=== PATIENT | female | born 1985 ===

== ENCOUNTER 2023-05-29 08:26 | Emergency (ER) | payer OTHER, SELFPAY ==
--- NOTE | ~2023-05-29 | XR_ITS ---
EXAMINATION: XR FINGER, RIGHT CLINICAL INFORMATION: Dog bite right index finger COMPARISON: None available. TECHNIQUE: 3 views of the right index finger. FINDINGS: There is comminuted fracture proximal phalanx proximal end with extension to DIP joint. There is very minimal to no displacement. There is mild soft tissue swelling. XR/XR finger RT min 2V IMPRESSION: Comminuted fracture proximal end proximal phalanx DIP joint. Mild soft tissue swelling.
[2023-05-29 08:41] VITALS: BP 147/79; PULSE 92; RESP 16; TEMP 36.6; O2SAT 100; BMI 24.8
--- NOTE | 2023-05-29 09:26 | ED_ITS ---
HPI - Wound/Laceration General Chief Complaint: Wound/Laceration Stated Complaint: finger lac Time Seen by Provider: 05/29/23 09:05 Source: patient and family Mode of arrival: ambulatory Limitations: no limitations History of Present Illness HPI narrative: 38 yo female previously healthy left hand dominant here with complaints of laceration to the right index finger. Patient reports her dog was having a seizure and when he woke up he was quite agitated and confused causing a laceration to the finger. His rabies vaccines are up to date. Her tetanus is UTD. She denies weakness of the finger but reports some distal numbness/tingling Related Data Previous Rx's Medication Instructions Recorded amoxicillin 875 mg-potassium 1 tab PO BID #14 tabs 05/29/23 clavulanate 125 mg tablet Allergies Allergy/AdvReac Type Severity Reaction Status Date / Time No Known Allergies Allergy Verified 05/29/23 08:40 Review of Systems 2 Review of Systems: Yes all other systems are reviewed and are negative Constitutional: Constitutional: Reports no additional constitutional complaints, Denies body ache(s), Denies chills, Denies fever(s), Denies headache(s) and Denies weakness Eyes: Eyes: Reports no additional eye complaints and Denies change in vision ENT: Reports system reviewed and no additional complaints, except as documented, Denies dizziness, Denies headache(s), Denies nasal congestion, Denies nasal discharge and Denies neck pain Cardiovascular: Cardiovascular: Reports no additional cardiovascular complaints, Denies chest pain, Denies leg edema and Denies dyspnea Respiratory: Respiratory: Reports no additional respiratory complaints, Denies cough and Denies dyspnea Gastrointestinal: Gastrointestinal: Reports no additional gastrointestinal complaints, Denies abdominal pain, Denies diarrhea, Denies nausea and Denies vomiting Genitourinary: Genitourinary: Reports no additional female genitourinary complaints and Denies urinary incontinence Musculoskeletal: Musculoskeletal: Reports no additional musculoskeletal complaints, Denies back pain, Denies arthralgias, Denies joint swelling, Denies neck pain, Reports numbness and Reports tingling Integumentary/Breasts: Skin/Breast: Reports system reviewed and no additional complaints, except as docu, Denies rash and Reports wounds Neurologic: Reports system reviewed and no additional complaints, except as documented, Denies Abnormal speech present, Denies dizziness, Denies headache(s), Reports numbness, Reports tingling and Denies weakness [facility] [place] Past Medical History Attestation statement: The following information was validated with the patient. Source: old records reviewed and nursing notes reviewed Social History Social History Advance Directives: No Physical Exam 2 Vital Signs: Vital Signs: Last Vital Signs Temp 98 F 05/29/23 08:41 Pulse 92 05/29/23 08:41 Resp 16 05/29/23 08:41 BP 147/79 H 05/29/23 08:41 Pulse Ox 100 05/29/23 08:41 O2 Del Method Room Air 05/29/23 08:41 BMI result Body Mass Index 24.8 Const: General: cooperative, healthy appearing, comfortable and no acute distress Orientation/consciousness: patient oriented x3 Limitations: no limitations HEENT: Head: Yes normal to inspection Ears: hearing grossly normal bilaterally General nose exam: Normal external nose present Face and sinus: Yes normal facial exam Mouth: Normal oral and palatal mucosa present Throat: Yes posterior oropharynx normal Eyes: General: appearance normal, both eyes and all related structures P upils: Equal, round and reactive pupils present Neck: Neck: Yes normal visual inspection Chest: Chest palpation & inspection: normal inspection of the chest Resp: Effort & Inspection: normal respiratory effort Auscultation: clear to auscultation bilaterally Cardio: Rate: regular rate Rhythm: regular rhythm Peripheral pulses: P eripheral pulses 2+ throughout GI: Inspection: Yes normal to inspection Palpation (GI): Soft to palpation and nontender Auscultation: normal bowel sounds Back/Spine/Pelvis: Thoracic/Lumbar Spine: thoracic and lumbar spine normal to inspection Skin: General skin exam: no rashes or lesions noted Neuro: General: patient oriented x3, no focal motor deficits and normal sensation to monofilament Cranial nerves: Yes Equal, round and reactive pupils present Cognition (Neuro): normal cognition Speech: No Abnormal speech present Gait exam (Neuro): Normal gait present Motor exam (neuro): 5/5 motor strength present throughout Extrem: Hand/finger images: 1. 5cm laceration present bleeding controlled Full active/passive ROM of the digit Reports decreased sensation over the volar aspect of the distal digit Medications Administered Discontinued Medications Generic Name Dose Route Start Last Admin Trade Name Freq PRN Reason Stop Dose Admin Bacitracin 1 appl 05/29/23 10:11 05/29/23 10:14 Bacitracin Oint 0.9 Gm Packet TOPICAL 05/29/23 10:12 1 appl ONCE ONE Administration Protocol Lidocaine HCl 2 ml 05/29/23 09:25 05/29/23 09:35 Lidocaine Hcl 1 % Mpf 2 Ml Vial INFILTRATI 05/29/23 09:26 2 ml ONCE ONE Administration Lidocaine HCl 2 ml 05/29/23 09:25 05/29/23 09:35 Lidocaine Hcl 1 % Mpf 2 Ml Vial INFILTRATI 05/29/23 09:26 2 ml ONCE ONE Administration Medical Decision Making Medical Decision Making MDM Narrative: 38 yo female previously healthy left hand dominant here with complaints of laceration to the right index finger. Patient reports her dog was having a seizure and when he woke up he was quite agitated and confused causing a laceration to the finger. His rabies vaccines are up to date. Her tetanus is UTD. She denies weakness of the finger but reports some distal numbness/tingling Differential Diagnosis Differential Diagnoses: The differential diagnosis associated with the presentation includes laceration fracture low suspician for retained fb or tendon injury Admission/Observation Consideration of admission/observation: Escalation of care including admission/observation considered patient with dog bite with laceration with comminuted distal fracture of the digit. Will require outpatient follow-up with orthopedics. Low suspicion for tendon injury, tenosynovitis or osteomyelitis requiring admission with IV antibiotics Consult Healthcare Provider Management of the patient was discussed with: Vegetable Farmer spoke to orthopedic NAVEEN hammond who will follow with the patient outpatient in the clinic Independent Interpretation I performed an independent interpretation of an: Plain X-Ray Interpretation: I independently reviewed the x-ray and agree with the radiology report Radiology Impression Discussion of test interpretation with radiology: I have reviewed the radiologist's reading. Radiologist Impression: [address] [address] XRay Report Signed Patient: Leti Rosas MR#: [id number] : 1985 Acct:[id number] Age/Sex: 38 / F ADM Date: 05/29/23 Loc: .ED Attending Dr: Ordering Physician: Isaura Rubio MD Date of Service: 05/29/23 Procedure(s): XR finger RT min 2V Accession Number(s): [id number] cc: Isaura Rubio MD; Physician,Unknown ~ EXAMINATION: XR FINGER, RIGHT CLINICAL INFORMATION: Dog bite right index finger COMPARISON: None available. TECHNIQUE: 3 views of the right index finger. FINDINGS: There is comminuted fracture proximal phalanx proximal end with extension to DIP joint. There is very minimal to no displacement. There is mild soft tissue swelling. XR/XR finger RT min 2V IMPRESSION: Comminuted fracture proximal end proximal phalanx DIP joint. Mild soft tissue swelling. Independent Historian Clinical information obtained from an independent historian. History obtained from or confirmed by: Spouse Prescription Management I considered prescription management with: Antibiotic Procedures Laceration Laceration 1: Site: hand ( 2nd digit) Side (If applicable): right Size (cm): 5 Description: irregular Depth: simple, single layer Local Anesthetic: lidocaine 1% Pre-repair: wound explored, irrigated extensively ( 2 L of saline) and deep structures intact Skin layer closed with: vicryl Size (cm): 5-0 Number of sutures: 9 Technique: simple, interrupted Nerve Block Nerve Block 1: Time out performed: No Local Anesthetic: lidocaine 1% Amount of anesthesia used (mL): 3 Side: right Nerve Blocks: digital Procedure Successful: Yes Patient Tolerated Procedure: well Complications: none Discharge Plan Discharge Clinical Impression: Laceration, Dog bite, Finger fracture Patient Disposition: Home, Self-Care Instructions: Animal Bite (ED), Finger Fracture (ED) Additional Instructions: Sutures removed in 7-10 days Take the antibiotics as prescribed Return for worsening pain, fever, drainage or redness of the site concerning for infection Call Orthopedics on Wednesday morning to follow-up Leave the dressing in place for 24 hours then remove the dressing and wash the area with soap and water daily. Pat dry and reapply a dressing. Use the finger splint for the next few days to help with discomfort. Take Motrin or Tylenol for pain as needed Elevate the extremity to minimize swelling Prescriptions: New amoxicillin-pot clavulanate 875-125 mg tablet 1 tab PO BID Qty: 14 0RF Referrals: [facility] [place] Orthopedic Surgeons [Provider Group] - 1 week Stand Alone Forms: Work/School Release Interventions: ED Discharge Assessment Last Done: 05/29/23 10:39 Discharge Date/Time: 05/29/23 10:41
[2023-05-29] MEDS: Lidocaine HCl 1 % MPF 2 ML VIAL INFILTRATI ×2 (09:35)
[2023-05-29] MEDS: Bacitracin Oint 0.9 GM PACKET 1 APPL TOPICAL (10:14)
== END 2023-05-29 10:41 | disposition home or self-care (01) ==
PROVIDERS: Emergency Provider Student in an Organized Health Care Education/Training Program
DX: S61.210A Laceration without foreign body of right index finger without damage to nail, initial encounter (principal); W54.0XXA Bitten by dog, initial encounter; Y93.89 Activity, other specified; Y92.9 Unspecified place or not applicable; Y99.9 Unspecified external cause status
CPT/HCPCS: 12002; 73140; 99283; 99284

== ENCOUNTER 2023-05-30 09:47 | Emergency (ER) | payer OTHER, SELFPAY ==
[2023-05-30 09:56] VITALS: BP 117/64; PULSE 100; RESP 19; TEMP 36.6; O2SAT 99; BMI 24.8
[2023-05-30] MEDS: Bacitracin Oint 0.9 GM PACKET 1 APPL TOPICAL (11:56)
--- NOTE | 2023-05-30 12:03 | ED_ITS ---
HPI - General Adult General Chief complaint: General Medical Stated complaint: Finger pain Time Seen by Provider: 05/30/23 11:42 Source: patient Mode of arrival: ambulatory Limitations: no limitations History of Present Illness HPI narrative: 38-year-old female here with complaints of pain to the right 3rd digit. Patient reports she was seen here yesterday after having a dog bite and she had sutures placed. She was discharged with Augmentin with recommendations to take Motrin or Tylenol for pain. She was offered a narcotic pain medication then but she declined it as she believed that she had leftover Percocet at home from a previous surgical procedure. Patient reports she was afraid to take any Motrin over the last 24 hours but did take Tylenol twice with continued pain. She took 1 dose of Percocet but did not feel that help this pain prompting her to return to the emergency room. She denies any weakness of the extremity, drainage, redness, fevers or chills. Related Data Previous Rx's Medication Instructions Recorded amoxicillin 875 mg-potassium 1 tab PO BID #14 tabs 05/29/23 clavulanate 125 mg tablet ibuprofen 600 mg tablet 600 mg PO Q6H PRN pain #30 tabs 05/30/23 oxycodone 10 mg tablet 10 mg PO Q6H PRN pain #10 tabs 05/30/23 Allergies Allergy/AdvReac Type Severity Reaction Status Date / Time No Known Allergies Allergy Verified 05/30/23 09:55 Review of Systems Review of Systems: Yes all other systems are reviewed and are negative Constitutional: Constitutional: Reports no additional constitutional complaints, Denies body ache(s), Denies chills, Denies fever(s), Denies headache(s) and Denies weakness Eyes: Eyes: Reports no additional eye complaints and Denies change in vision ENT: Reports system reviewed and no additional complaints, except as documented, Denies dizziness, Denies headache(s), Denies nasal congestion, Denies nasal discharge and Denies neck pain Cardiovascular: Cardiovascular: Reports no additional cardiovascular complaints, Denies chest pain, Denies leg edema and Denies dyspnea Respiratory: Respiratory: Reports no additional respiratory complaints, Denies cough and Denies dyspnea Gastrointestinal: Gastrointestinal: Reports no additional gastrointestinal complaints, Denies abdominal pain, Denies diarrhea, Denies nausea and Denies vomiting Genitourinary: Genitourinary: Reports no additional female genitourinary complaints and Denies urinary incontinence Musculoskeletal: Musculoskeletal: Reports no additional musculoskeletal complaints, Denies back pain, Denies arthralgias, Denies joint swelling, Denies neck pain, Denies numbness and Denies tingling Integumentary/Breasts: Skin/Breast: Reports system reviewed and no additional complaints, except as docu and Denies rash Neurologic: Reports system reviewed and no additional complaints, except as documented, Denies Abnormal speech present, Denies dizziness, Denies headache(s), Denies numbness, Denies tingling and Denies weakness [facility] Past Medical History Attestation statement: The following information was validated with the patient. Source: old records reviewed and nursing notes reviewed Social History Social History Advance Directives: No Advance Directives Information Provided: No Physical Exam ED Vital Signs: Vital Signs - 24 hr 05/30/23 09:56 Temperature 98 F Pulse Rate 100 Respiratory Rate 19 Blood Pressure 117/64 Pulse Oximetry 99 Oxygen Delivery Method Room Air BMI result Body Mass Index 24.8 Const General: cooperative, healthy appearing, comfortable and no acute distress Orientation/consciousness: patient oriented x3 Limitations: no limitations HENMT Head: Yes normal to inspection Ears: hearing grossly normal bilaterally General nose exam: Normal external nose present Face and sinus: Yes normal facial exam Mouth: Normal oral and palatal mucosa present Throat: Yes posterior oropharynx normal Eyes General: appearance normal, both eyes and all related structures Pupils: Equal, round and reactive pupils present Neck Neck: Yes normal visual inspection Chest Chest palpation & inspection: normal inspection of the chest Resp Effort & Inspection: normal respiratory effort Auscultation: clear to auscultation bilaterally Cardio Rate: regular rate Rhythm: regular rhythm Peripheral pulses: Peripheral pulses 2+ throughout GI Inspection: Yes normal to inspection Palpation (GI): Soft to palpation and nontender Auscultation: normal bowel sounds Back/Spine/Pelvis Thoracic/Lumbar Spine: thoracic and lumbar spine normal to inspection Skin General skin exam: no rashes or lesions noted Neuro General: patient oriented x3, no focal motor deficits and normal sensation to monofilament Cranial nerves: Yes Equal, round and reactive pupils present Cognition (Neuro): normal cognition Speech: No Abnormal speech present Gait exam (Neuro): Normal gait present Motor exam (neuro): 5 motor strength present throughout Extrem Other: On the right hand over the volar aspect of the 3rd digit there are sutures present. There is local swelling and tenderness on palpation. I do not appreciate any significant erythema. I pressed on all areas of the suture site and there is no expressible drainage. There is limited range of motion of the digit due to pain. The patient does have some distal numbness and tingling over the volar aspect of the digit which she had yesterday. Medications Administered Discontinued Medications Generic Name Dose Route Start Last Admin Trade Name Alice PRN Reason Stop Dose Admin Bacitracin 1 appl 05/30/23 11:52 05/30/23 11:56 Bacitracin Oint 0.9 Gm Packet TOPICAL 05/30/23 11:53 1 appl ONCE ONE Administration Protocol Medical Decision Making Medical Decision Making [facility] Narrative: 38-year-old female here with complaints of pain to the right 3rd digit. Patient reports she was seen here yesterday after having a dog bite and she had sutures placed. She was discharged with Augmentin with recommendations to take Motrin or Tylenol for pain. She was offered a narcotic pain medication then but she declined it as she believed that she had leftover Percocet at home from a previous surgical procedure. Patient reports she was afraid to take any Motrin over the last 24 hours but did take Tylenol twice with continued pain. She took 1 dose of Percocet but did not feel that help this pain prompting her to return to the emergency room. She denies any weakness of the extremity, drainage, redn ess, fevers or chills. On the right hand over the volar aspect of the 3rd digit there are sutures present. There is local swelling and tenderness on palpation. I do not appreciate any significant erythema. I pressed on all areas of the suture site and there is no expressible drainage. There is limited range of motion of the digit due to pain. The patient does have some distal numbness and tingling over the volar aspect of the digit which she had yesterday. The site was cleansed with saline. A non-stick dressing with bacitracin was applied as well as a foam finger splint and wrap. I recommended she continue the oral antibiotic. I do recommend that she consider taking ibuprofen every 6 hours and adding oxycodone as needed for pain. She has plans to follow-up tomorrow outpatient with Orthopedics. Reviewed worrisome signs and symptoms of when to return to the emergency room. Comfortable plan for discharge home Differential Diagnosis Differential Diagnoses: The differential diagnosis associated with the presentation includes Laceration Low suspicion for cellulitis, tenosynovitis, wound infection Prescription Management I considered prescription management with: Pain Medication Discharge Plan Discharge Clinical Impression: Finger laceration Patient Disposition: Home, Self-Care Instructions: Finger Laceration (ED) Prescriptions: New ibuprofen 600 mg tablet 600 mg PO Q6H PRN (Reason: pain) Qty: 30 0RF oxycodone 10 mg tablet 10 mg PO Q6H PRN (Reason: pain) Qty: 10 0RF Rx Instructions: Partial Fill upon patient request. No Action amoxicillin-pot clavulanate 875-125 mg tablet 1 tab PO BID Qty: 14 0RF Interventions: ED Discharge Assessment Last Done: 05/30/23 12:02 Discharge Date/Time: 05/30/23 12:05
== END 2023-05-30 12:05 | disposition home or self-care (01) ==
PROVIDERS: Emergency Provider Student in an Organized Health Care Education/Training Program; PCP Internal Medicine
DX: S61.212A Laceration without foreign body of right middle finger without damage to nail, initial encounter (principal); W54.0XXA Bitten by dog, initial encounter; Y93.9 Activity, unspecified; Y92.9 Unspecified place or not applicable; Y99.8 Other external cause status
CPT/HCPCS: 29130; 99282; 99283

== ENCOUNTER 2023-06-01 14:25 | Outpatient (AMB) | payer OTHER, SELFPAY ==
--- NOTE | 2023-06-01 14:53 | A.OFFVIS_ITS ---
Intake Vital Signs 06/01/23 15:00 Height 4 ft 11 in Weight 125 lb BMI 25.2 Handedness Left Intake Visit Reasons: New Pt - right index finger, s/p dog bite Intake Note: Leti is a 38 year old right hand dominant female who presents today as a new patient for evaluation of her right index finger after dog bite on 05/29/2023. Patient reports that her dog was having a seizure and when he came to her was agitated and bit her. She complains of pain and mild numbness in the distal aspect of the 2nd digit. Dog is up to date on all vaccinations and patient is up to date with tetanus. Has been taking Motrin and Oxycodone for pain, as well as ABX. Currently she is doing better, however she is having some discomfort on the top and bottom of her IF. Having numbness on the tip of the finger and where the dog bites are. Allergies No Known Allergies Allergy (Verified 06/01/23 15:01) HPI New Pt - right index finger, s/p dog bite HPI Details Leti is a 38 year old left hand dominant woman who presents for a right index finger fracture, S/P dog bite, DOI 05/29/23. She was bitten after her dog woke up from having a seizure. She was seen in the ED where her wound was cleaned and sutured, and she was given a course of PO Augmentin. She has been managing her pain with Oxycodone & Motrin. She says she is doing better but continues to have pain. She also complains of numbness to the tip of her index finger, which began following the dog bite. 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 Review of Systems Const All systems reviewed & are unremarkable except as noted in HPI and below Physical Exam Vital Signs: BMI result Body Mass Index 25.2 Const General: cooperative, healthy appearing and no acute distress Orientation/consciousness: patient oriented x3 HEENT Head: Yes normocephalic and Yes atraumatic Eyes EOM: EOMs intact bilaterally Resp Effort & Inspection: normal respiratory effort and able to speak in complete sentences Cardio Jugular venous distension: no JVD Skin General skin exam: turgor normal Rashes: no rashes Neuro General: patient oriented x3 Extrem Other: Evaluation of Right Upper Extremity: The patient is alert, oriented, and in no acute distress She sustained a dog bite to the distal aspect of the right index finger. She does have some generalized swelling in the index finger distal to the PIP joint There is a linear well approximated wound over the dorsal aspect of the index finger D IP joint. No suture is in place but the wound appears to be well approximated. On the volar aspect of the finger extending obliquely from the distal ulnar tip of the digit proximally to the volar radial aspect of the digit just distal to the PIP flexion crease. Sutures are in place. She does have some maceration along the suture line, likely from perhaps a little too much antibiotic ointment. She does have dense numbness in the radial digital nerve distribution distal to the laceration. Sensation is better to the ulnar digital nerve distribution at the ulnar tip of the digit. She was able to demonstrate active flexion at the PIP joint. With encouragement it appeared that she was able to weakly demonstrate some active flexion at the D IP joint. The patient also reports that while she was in the emergency department and before they sutured her up she was able to bring her index finger fully closed to a fist with good active flexion at the PIP and D IP joints. She can then actively extend the digit. No wounds on any of the other digits. Full active flexion and extension of the other digits in the hand. Radiographs: 3 views of the right hand, with attention to the index finger from 05/29/23 were reviewed by me today in clinic. They show two nondisplaced linearly oriented fracture lines of the base of the right index finger distal phalanx, 1 of them extends to the articular surface.. Fractures appear to be nondisplaced.. Psych Appearance: grossly normal Affect: normal affect Attitude: cooperative Office Procedures Fracture Care Details: Fracture care [id number] Fracture Billing Code: Fracture Billing Code Assessment & Plan Assessment & Plan (1) Open fracture of distal phalanx of right index finger: Code(s): S62.630B - Displaced fracture of distal phalanx of right index finger, initial encounter for open fracture (2) Open wound of right index finger due to dog bite: Code(s): S61.250A - Open bite of right index finger without damage to nail, initial encounter; W54.0XXA - Bitten by dog, initial encounter Plan Assessment & Plan: 1. Right index finger open distal phalanx fracture, From a dog bite, DOI: 05/29/23 It does appear likely that the bite wound not only cause the fracture but may have entered the D IP joint. At this point it appears that the FDP and FDS tendons are intact. The extensor tendon is intact I educated her about this condition I believe this can be managed non operatively, at least for now. I explained the signs and symptoms of infection, if the patient develops any new or worsening erythema, drainage, pain, or warmth they should contact the clinic immediately, or if we are unavailable attend the ED. I ordered an additional 7-day course of PO Augmentin for her to take when her current course finishes She will clean this daily with hydrogen peroxide-water mix and apply an abx ointment & clean dressing Starting on Wednesday she can start washing her hand including the index finger with soap and water in the shower, but she should not be submerging the hand under water. I discussed activity modification, she is to lift nothing heavier than a cellphone for the next 4 weeks She will follow up next week for a wound check and possible suture removal. We will also reassess the FDP tendon to the index finger. Scribed for Miriam Horton MD by Ankur Nava, medical officer, on [ ] at [ ], EST. Coding Level of Care Code New Pt Level 4 (73699) Diagnoses Open fracture of distal phalanx of right index finger S62.630B Open wound of right index finger due to dog bite S61.250A; W54.0XXA CPT Codes Fracture Care - Fracture Billing Code: Fracture Billing Code ([id number])
[2023-06-01 15:00] VITALS: BMI 25.2
== END 2023-06-01 16:44 | disposition home or self-care (01) ==
PROVIDERS: PCP Internal Medicine; Visit Provider Orthopaedic Surgery
DX: S62.630B Displaced fracture of distal phalanx of right index finger, initial encounter for open fracture (principal); W54.0XXA Bitten by dog, initial encounter
CPT/HCPCS: 99204

== ENCOUNTER → 2023-06-01 14:25 | Outpatient (BNVA) | payer OTHER, SELFPAY | PROVIDERS: PCP Internal Medicine; Visit Provider Orthopaedic Surgery ==

== ENCOUNTER 2023-06-08 14:16 | Outpatient (AMB) | payer OTHER, SELFPAY ==
[2023-06-08 14:25] VITALS: BMI 25.2
--- NOTE | 2023-06-08 14:25 | MHC.OFFVIS ---
Intake Vital Signs 06/08/23 14:25 Height 4 ft 11 in Weight 125 lb BMI 25.2 Intake Visit Reasons: OV-right index finger, s/p dog bite Intake Note: Leti 38 yr old left hand dominant female presents today for her wound of right index finger due to dog bite 05/29/23. States she has mild pain and is working on her ROM. Allergies No Known Allergies Allergy (Verified 06/08/23 14:28) HPI OV-right index finger, s/p dog bite HPI Details Leti is a 38 year old left hand dominant woman who returns for a wound check of her right index finger fracture, S/P dog bite, DOI 05/29/23. She was bitten after her dog woke up from having a seizure. She says she is doing better but continues to have pain. She continues to work on ROM exercises at home. I gave her a 2nd week of Augmentin, and she says she is almost finished her Abx. 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 No suture is in place but the wound appears to be well approximated. On the volar aspect of the finger extending obliquely from the distal ulnar tip of the digit proximally to the volar radial aspect of the digit just distal to the PIP flexion crease. Sutures are in place, no evidence of infection. A few of the sutures were removed today in clinic She does have dense numbness in the radial digital nerve distribution distal to the laceration. Sensation is better to the ulnar digital nerve distribution at the ulnar tip of the digit. She was able to demonstrate active flexion at the PIP joint and at the DIP joint today in clinic . She can then actively extend the digit. Full active flexion and extension of the other digits in the hand. Radiographs: 3 views of the right hand, with attention to the index finger from 05/29/23 were reviewed by me today in clinic. They show two nondisplaced linearly oriented fracture lines of the base of the right index finger distal phalanx, 1 of them extends to the articular surface. Fractures appear to be nondisplaced.. Assessment & Plan Assessment & Plan (1) Open fracture of distal phalanx of right index finger: Code(s): S62.630B - Displaced fracture of distal phalanx of right index finger, initial encounter for open fracture (2) Open wound of right index finger due to dog bite: Code(s): S61.250A - Open bite of right index finger without damage to nail, initial encounter; W54.0XXA - Bitten by dog, initial encounter Plan Assessment & Plan: 1. Right index finger open distal phalanx fracture, From a dog bite, DOI: 05/29/23 It does appear likely that the bite wound not only caused the fracture but may have entered the DIP joint. The FDP and FDS tendons appear to be intact.. The extensor tendon is intact. Numbness in the radial digital nerve distribution, essentially distal to the oblique laceration. Again this is a dog bite, so it is hard to know whether this could be a neurapraxia of verses a tearing injury to the nerve. I educated her about these conditions. Some sutures removed today in clinic She will clean this daily with hydrogen peroxide-water mix and apply an abx ointment & clean dressing She can wash her hand with soap and water in the shower or sink, but she should not be submerging the hand under water. I discussed activity modification, she is to lift nothing heavier than a cellphone for the next 4 weeks She will continue to work on some gentle [id number] exercises. I explained the signs and symptoms of infection, if the patient develops any new or worsening erythema, drainage, pain, or warmth they should contact the clinic immediately, or if we are unavailable attend the ED. She will finished her 2nd week of Augmentin on 06/11/23. She will follow up next week for a wound check, removal of remaining sutures, with X-rays 3V R hand, attn IF Scribed for Miriam Horton MD by Ankur Nava, emergency medical service manager, on 06/08/23 at 2:35 PM, EST. Coding Level of Care Code Global (54008) Diagnoses Open fracture of distal phalanx of right index finger S62.630B Open wound of right index finger due to dog bite S61.250A; W54.0XXA
== END 2023-06-08 14:59 | disposition home or self-care (01) ==
PROVIDERS: PCP Internal Medicine; Visit Provider Orthopaedic Surgery
DX: S62.630B Displaced fracture of distal phalanx of right index finger, initial encounter for open fracture (principal); W54.0XXA Bitten by dog, initial encounter
CPT/HCPCS: 99213

== ENCOUNTER → 2023-06-08 14:16 | Outpatient (BNVA) | payer OTHER, SELFPAY | PROVIDERS: PCP Internal Medicine; Visit Provider Orthopaedic Surgery ==

== ENCOUNTER 2023-06-15 11:31 | Outpatient (REF) | payer OTHER, SELFPAY ==
--- NOTE | ~2023-06-15 | XR_ITS ---
EXAMINATION: XR HAND, RIGHT CLINICAL INFORMATION: Pain in right finger. COMPARISON: 05/29/2023 TECHNIQUE: PA, lateral, and oblique views of the right hand. FINDINGS: Redemonstration of a comminuted intra-articular fracture at the base of the distal tuft of the second digit with mildly increased displacement of fracture fragments. Diffuse soft tissue swelling. XR/XR hand RT min 3V IMPRESSION: Redemonstration of comminuted fracture at the base of the distal tuft of the second digit with mildly increased displacement of fracture fragments.
== END 2023-06-15 11:32 | disposition home or self-care (01) ==
LOC: HO.HOSX 11:31
PROVIDERS: Visit Provider Orthopaedic Surgery
DX: S62.630D Displaced fracture of distal phalanx of right index finger, subsequent encounter for fracture with routine healing (principal)
CPT/HCPCS: 73130

== ENCOUNTER 2023-06-15 12:42 | Outpatient (AMB) | payer OTHER, SELFPAY ==
--- NOTE | 2023-06-15 12:49 | A.OFFVIS_ITS ---
Intake Vital Signs 06/15/23 12:50 Height 4 ft 11 in Weight 125 lb BMI 25.2 Intake Visit Reasons: OV-right index finger, s/p dog bite Intake Note: Leti 38 yr old left hand dominant female presents today for her wound of right index finger due to dog bite 05/29/23. States she has mild pain and is working on her ROM. Here today for removal of her sutures. Allergies No Known Allergies Allergy (Verified 06/15/23 12:50) HPI OV-right index finger, s/p dog bite HPI Details Leti is a 38 year old left hand dominant woman who returns for a wound check of her right index finger fracture, S/P dog bite, DOI 05/29/23. She was bitten after her dog woke up from having a seizure. She says she is doing better but continues to have some pain, this has improved since last week however. She continues to work on ROM exercises at home. She says she has completed her course of Abx and denies any symptoms of infection. 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 Remaining sutures removed today, no evidence of infection Her swelling appears to be improving, and her ecchymosis is resolving She does have dense numbness in the radial digital nerve distribution distal to the laceration. Sensation is better to the ulnar digital nerve distribution at the ulnar tip of the digit. She was able to demonstrate active flexion at the PIP joint and at the DIP joint today in clinic She could make a fist with encouragement and extend her digits She appears to have good FDP & FDS tendon function, though flexion at the FDP still appears to be fairly minimal Radiographs: 3 views of the right hand, with attention to the index finger were taken and viewed by me today in clinic. They show a minimally displaced intra-articular fracture of the base of the right index finger distal phalanx. Overall alignment satisfactory. Assessment & Plan Assessment & Plan (1) Open fracture of distal phalanx of right index finger: Code(s): S62.630B - Displaced fracture of distal phalanx of right index finger, initial encounter for open fracture (2) Open wound of right index finger due to dog bite: Code(s): S61.250A - Open bite of right index finger without damage to nail, initial encounter; W54.0XXA - Bitten by dog, initial encounter Plan Assessment & Plan: 1. Right index finger open distal phalanx fracture, From a dog bite, DOI: 05/29/23 It does appear likely that the bite wound not only caused the fracture but may have entered the DIP joint. The FDP and FDS tendons appear to be intact. The extensor tendon is intact. 2. Numbness in the radial digital nerve distribution/ distal to the oblique laceration. Again this is a dog bite, so it is hard to know whether this could be a neurapraxia of verses a tearing injury to the nerve. I educated her about these conditions. Remaining sutures removed today in clinic This injury is being managed conservatively. We educated her about daily wound care. I discussed activity modification, she is to lift nothing heavier than a cellphone for the next 4 weeks She will continue to work on some gentle hiqen-oj-kzawup exercises. She has completed her course of Abx I explained the signs and symptoms of infection, if the patient develops any new or worsening erythema, drainage, pain, or warmth they should contact the clinic immediately, or if we are unavailable attend the ED. She will follow up in 4 weeks, no X-rays unless she has pain or is not improving. Scribed for Miriam Horton MD by Ankur Nava, medical records clerk, on 06/15/23 at 1:00 PM, EST. Orders: Orders XR hand RT min 3V Today M79.641 - Pain in right hand Coding Level of Care Code Global (71348) Diagnoses Open fracture of distal phalanx of right index finger S62.630B Open wound of right index finger due to dog bite S61.250A; W54.0XXA
[2023-06-15 12:50] VITALS: BMI 25.2
== END 2023-06-15 13:04 | disposition home or self-care (01) ==
PROVIDERS: PCP Internal Medicine; Visit Provider Orthopaedic Surgery
DX: S62.630B Displaced fracture of distal phalanx of right index finger, initial encounter for open fracture (principal); W54.0XXA Bitten by dog, initial encounter
CPT/HCPCS: 99213

== ENCOUNTER 2023-07-20 15:55 | Outpatient (AMB) | payer OTHER, SELFPAY ==
[2023-07-20 16:34] VITALS: BMI 25.2
--- NOTE | 2023-07-20 16:34 | MHC.OFFVIS ---
Vital Signs 07/20/23 16:34 Height 4 ft 11 in Weight 125 lb BMI 25.2 Intake Visit Reasons: OV-right index finger, s/p dog bite-ROM Intake Note: Leti 38 yr old left hand dominant female presents today for her wound and ROM check of right index finger due to dog bite 05/29/23. States she has mild pain and is working on her ROM with some improvement. Allergies No Known Allergies Allergy (Verified 07/20/23 16:51) HPI HPI OV-right index finger, s/p dog bite-ROM: Details: Leti is a 38 year old left hand dominant woman who returns for a wound check of her right index finger fracture, S/P dog bite, DOI 05/29/23. She was bitten after her dog woke up from having a seizure. She says she is doing better but continues to have some pain still. She has been working on her ROM at home which she feels has been going well. She says she has completed her course of Abx and denies any symptoms of infection. She is concerned that she had something like a blister on her finger. She says this has decreased in size in the last week. It was on the volar radial aspect of the finger at the proximal aspect of the laceration. Again it appeared to improve since last week. 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 Her wounds have healed well, her swelling & ecchymosis have resolved Her finger is still mildly hyperemic and shiny She can make a fist and extend all her digits She has some mild hyperextenson at her uninjured PIP joints, but extension only to neutral at the index finger PIP joint She has an ~5 degree mallet deformity of the index finger DIP joint She does have dense numbness in the radial digital nerve distribution distal to the laceration, she says this has started to improve since she was last seen Normal sensation to the ulnar digital nerve distribution at the ulnar tip of the digit. Radiographs: 3 views of the right hand, with attention to the index finger were taken 06/15/2023 and viewed by me today in clinic. They show a minimally displaced intra-articular fracture of the base of the right index finger distal phalanx. Overall alignment satisfactory. Assessment & Plan Assessment & Plan (1) Open fracture of distal phalanx of right index finger: Code(s): S62.630B - Displaced fracture of distal phalanx of right index finger, initial encounter for open fracture Category: Medical (2) Open wound of right index finger due to dog bite: Code(s): S61.250A - Open bite of right index finger without damage to nail, initial encounter; W54.0XXA - Bitten by dog, initial encounter Category: Medical (3) Stiffness of finger joint: Code(s): M25.649 - Stiffness of unspecified hand, not elsewhere classified Category: Medical Plan Assessment & Plan: 1. Right index finger stiffness, S/P open distal phalanx fracture From a dog bite, DOI: 05/29/23 The FDP and FDS tendons appear to be intact. The extensor tendon is intact. 2. Numbness in the radial digital nerve distribution/ distal to the oblique laceration. Again this is a dog bite, so it is hard to know whether this could be a neurapraxia of verses a tearing injury to the nerve. I educated her about these conditions I discussed activity modification, she is to begin to use her hand for lightweight activities She will continue to work on ROM exercises at home I ordered OT hand therapy to work on ROM exercises and normalizing hand function She will follow up in 4-6 weeks, no X-rays unless she has pain or is not improving. Scribed for Miriam Horton MD by Ankur Nava, medical grade shoemaker, on 07/20/23 at 4:45 PM, EST. Orders: Orders OT Evaluation and Treatment Today M25.649 - Stiffness of unspecified hand, not elsewhere classified, S61.250A - Open bite of right index finger without damage to nail, initial encounter, S62.630B - Displaced fracture of distal phalanx of right index finger, initial encounter for open fracture, W54.0XXA - Bitten by dog, initial encounter Coding Level of Care Code Global (87171) Diagnoses Open fracture of distal phalanx of right index finger S62.630B Open wound of right index finger due to dog bite S61.250A; W54.0XXA Stiffness of finger joint M25.465
== END 2023-07-20 16:51 | disposition home or self-care (01) ==
PROVIDERS: PCP Internal Medicine; Visit Provider Orthopaedic Surgery
DX: S62.630B Displaced fracture of distal phalanx of right index finger, initial encounter for open fracture (principal); W54.0XXA Bitten by dog, initial encounter; M25.649 Stiffness of unspecified hand, not elsewhere classified
CPT/HCPCS: 99213

== ENCOUNTER → 2023-07-20 15:55 | Outpatient (BNVA) | payer OTHER, SELFPAY | PROVIDERS: PCP Internal Medicine; Visit Provider Orthopaedic Surgery ==

== ENCOUNTER 2023-09-07 08:00 | Outpatient (RCR) | payer OTHER, SELFPAY ==
--- NOTE | 2023-08-17 16:33 | MHC.OT.EP ---
[address] [phone] Occupational Therapy Plan of Care Patient Name: Leti Rosas Date of Evaluation: 08/17/23 Diagnosis: Displaced fracture of distal phalanx of right index finger, initial encounter for open fracture Open bite of right index finger without damage to nail, Bitten by dog, initial encounter Stiffness of finger joint: Pain Location: 6 right index PIPj ache Pain Score: 6 Pain Scale Used: Numeric (0 - 10) Aggravating Factors: Pressure on right index and bending Alleviating Factors: Assessment: Pt is s/p displaced open fracture of distal phalanx of right index finger due to a dog bite. She now presents with a mild DIPj contracture and stiff PIP joint limiting a full tight fist. Hand strength is slightly impaired due to pain with a forceful coke wheeler She reports mild difficulty with daily activities ie pressing a fork with cutting food, opening a tight jar and heavy lifting. 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 Treatment Plan: Therapeutic Exercise Therapeutic Activity Home Exercise Program Splinting Patient Education ADL Training Paraffin Fluidotherapy [facility] Electronically Signed By: Erma Bernal OT CHT CLT Please Sign and return to therapist. Thank you once again for your referral.
--- NOTE | 2023-09-07 09:04 | MHC.OT.DC ---
[address] [phone] F: [phone] Occupational Therapy Discharge Note Patient Name: Leti Rosas Provider: Miriam Horton Diagnosis: Displaced fracture of distal phalanx of right index finger, initial encounter for open fracture Open bite of right index finger without damage to nail, Bitten by dog, initial encounter Stiffness of finger joint: Date of Surgery: Date of Evaluation: 08/17/23 Date of Discharge: 09/07/23 Treatments to Date: 3 Cancellations to Date: 0 No Shows to Date: 0 Discharge Status: Discharge Summary: 2 wk lapse in treatment due to pt vacation Improvement in right index ROM at PIP > DIP jt to WFL. 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 Reports improving with opening tight jars, securing earring and other and daily activities with right index use. Okay with keyboard and most daily activities I anticipate continued slow improvement with HEP. PIP 0/105 DIP 0/35. 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
== END 2023-09-07 09:05 | disposition home or self-care (01) ==
LOC: HO.OT 08:00
PROVIDERS: PCP Internal Medicine; Visit Provider Orthopaedic Surgery
DX: S62.630D Displaced fracture of distal phalanx of right index finger, subsequent encounter for fracture with routine healing (principal); S61.250D Open bite of right index finger without damage to nail, subsequent encounter; W54.0XXD Bitten by dog, subsequent encounter
CPT/HCPCS: 97035; 97110; 97166

== ENCOUNTER 2023-09-07 08:43 | Outpatient (AMB) | payer OTHER, SELFPAY ==
--- NOTE | 2023-09-07 08:51 | A.OFFVIS_ITS ---
Vital Signs 09/07/23 08:53 Height 4 ft 11 in Weight 125 lb BMI 25.2 Handedness Left Intake Visit Reasons: OV-right index finger, s/p dog bite-ROM Intake Note: Leti 38 yr old left hand dominant female presents today for her wound and ROM check of right index finger due to dog bite 05/29/23 S/P O.T. Patient reports she completed OT today and found it helpful for her ROM but is still unable to make a full closed cletched fist. She expresses her right index finger is still stiff but sensation is beginning to return slowly. Allergies No Known Allergies Allergy (Verified 09/07/23 08:56) HPI HPI OV-right index finger, s/p dog bite-ROM: Details: Leti is a 38 year old left hand dominant woman who returns for a ROM check of her right index finger fracture, S/P dog bite, DOI 05/29/23. She was bitten after her dog woke up from having a seizure. She says she is doing better & has been working on her ROM at home, which she feels has been going well. She notices that she can not flex the D IP joint to the index finger to the same degree as the adjacent digits when she makes a fist. She says she has done 3 sessions of OT hand therapy, and her therapist has said she should d/c OT and continue to work on ROM at home. She has noticed some improvement in the numbness in the radial side of her finger. 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 Normal sensation to the ulnar digital nerve distribution at the ulnar tip of the digit. Vascular: Cap refill brisk ROM: She can make a fist and extend all her digits When making a fist she can bring her index finger DIP joint to ~30 degrees of flexion She has an ~5-8 degree extensor lag of the index finger DIP joint The D IP joint is not particularly tender. Psych Appearance: grossly normal Affect: normal affect Attitude: cooperative Assessment & Plan Assessment & Plan (1) Open fracture of distal phalanx of right index finger: Code(s): S62.630B - Displaced fracture of distal phalanx of right index finger, initial encounter for open fracture Category: Medical (2) Open wound of right index finger due to dog bite: Code(s): S61.250A - Open bite of right index finger without damage to nail, initial encounter; W54.0XXA - Bitten by dog, initial encounter Category: Medical (3) Stiffness of finger joint: Code(s): M25.649 - Stiffness of unspecified hand, not elsewhere classified Category: Medical Plan Assessment & Plan: 1. Right index finger D IP stiffness, S/P open distal phalanx fracture From a dog bite, DOI: 05/29/23 The FDP and FDS tendons appear to be intact. The extensor tendon is intact. 2. Numbness in the radial digital nerve distribution/ distal to the oblique laceration. Today with improving sensation I educated her about these conditions She has improved her ROM with home exercises & OT hand therapy, but still has difficulty making a full fist. I recommend she continue to work on ROM exercises and to use her hand for more normal daily activities She has happy with the current plan She can follow up prn. Scribed for Miriam Horton MD by lexi Eng, on 09/07/23 at 9:10 AM, EST. Scribe Plan - Not visible on output: Scribed for Miriam Horton MD by lexi Eng, on [ ] at [ ], EST. Coding Level of Care Code Global (55899) Diagnoses Open fracture of distal phalanx of right index finger S62.630B Open wound of right index finger due to dog bite S61.250A; W54.0XXA Stiffness of finger joint M25.649
[2023-09-07 08:53] VITALS: BMI 25.2
== END 2023-09-07 09:30 | disposition home or self-care (01) ==
PROVIDERS: PCP Internal Medicine; Visit Provider Orthopaedic Surgery
DX: S62.630B Displaced fracture of distal phalanx of right index finger, initial encounter for open fracture (principal); W54.0XXA Bitten by dog, initial encounter; M25.649 Stiffness of unspecified hand, not elsewhere classified
CPT/HCPCS: 99212

== ENCOUNTER → 2023-09-07 08:43 | Outpatient (BNVA) | payer OTHER, SELFPAY | PROVIDERS: PCP Internal Medicine; Visit Provider Orthopaedic Surgery ==